=== PATIENT | male | born 1960 ===

== ENCOUNTER 2018-03-08 07:49 | Day surgery (SDC) | payer OTHER ==
[2018-03-03 09:14] VITALS: BMI 36.8
[~2018-03-08 07:49] MED LIST: ceFAZolin IV 1 gm in Dextrose 1 GM/50 ML BAG IVPB ONE
[2018-03-08] MEDS ORDERED: Acetaminophen-Codeine 300/30 mg Tab PO PRN (07:52)
[2018-03-08] MEDS ORDERED: Dextrose 5%/0.45% NS 1,000 ML IV SCH (08:00)
[2018-03-08] MEDS ORDERED: Lactated Ringer's 1,000 ML IV ONE ×2 (11:15→13:15)
[2018-03-08] MEDS ORDERED: Lidocaine/Epinephrine 1% 1:100000 10 ML IJ ONE (11:19)
[2018-03-08] MEDS ORDERED: ceFAZolin 1 gm in NS 1 GM/100 ML BAG IVPB ONE (11:19)
[2018-03-08] MEDS ORDERED: Oxymetazoline 0.05% Nasal Spray (30 ml) NS ONE (11:19)
[2018-03-08] MEDS ORDERED: EPINEPHrine 1:1000 Nasal Sol(30mL) ONE (11:19)
[2018-03-08] MEDS ORDERED: Midazolam 2 MG/2 ML VIAL ONE (11:24)
[2018-03-08] MEDS ORDERED: Propofol 10 mg/ml Inj (20 ML) ONE (11:24)
[2018-03-08] MEDS ORDERED: Succinylcholine Chloride 20 mg/ml Syr (5 ml) IV ONE (11:25)
[2018-03-08] MEDS ORDERED: Lidocaine Hydrochloride 5 ML INJ ONE (11:25)
[2018-03-08] MEDS ORDERED: HYDROmorphone 0.5 mg/0.5 ml ISec IVP PRN (12:23)
[2018-03-08] MEDS ORDERED: Lactated Ringer's 1,000 ML IV SCH (12:30)
[2018-03-08 13:47] VITALS: PULSE 81; RESP 18; O2SAT 95
[2018-03-08 14:51] VITALS: BP 152/85; TEMP 97.6
--- NOTE | 2018-03-08 23:56 | OP ---
PROCEDURE DATE: 03/08/2018 PREOPERATIVE DIAGNOSIS: Left epistaxis. POSTOPERATIVE DIAGNOSIS: Left epistaxis. PROCEDURES: Endoscopic cauterization of left epistaxis and endoscopic left inferior turbinate reduction. SURGEON: Ron Mack MD DESCRIPTION OF PROCEDURE: The patient was brought into the room, placed in supine position. Anesthesia was initiated through an ET tube. The patient was draped in the usual manner. Afrin-soaked pledgets were inserted into the nasal cavity, remained there for at least five minutes and removed. A 0-degree scope was inserted into the left nasal cavity. Possible areas of bleeding anterior on the septum were cauterized using suction cautery. Next, the inferior turbinate was reduced posteriorly, going from inferior to superior and anterior to posterior directions. The lateral nasal wall posteriorly was cauterized using suction cautery. The scope was removed. The patient was taken off anesthesia and taken to the recovery room in stable manner. Ron Mack MD
== END 2018-03-08 14:19 | disposition home or self-care (01) ==
LOC: C.SDS 07:49
PROVIDERS: ATTEND Otolaryngology
DX: R04.0 Epistaxis (principal); J32.9 Chronic sinusitis, unspecified
CPT/HCPCS: 31238; 82948; 88304; J0690; J2250; J2405; J2704; J7120